=== PATIENT | male | born 1980 | race African-American/Black ===

== ENCOUNTER 2021-06-22 13:16 | Emergency (ER) | payer OTHER ==
[~2021-06-22] VITALS: Ht 185.4 cm; Wt 88.5 kg
[2021-06-22 13:30] VITALS: BP 163/82
[2021-06-22] MEDS ORDERED: SUPRAX400 M1 PO (13:47)
[2021-06-22] MEDS ORDERED: DOXYCYCLINE 10100 MG PO (13:47)
== END 2021-06-22 14:04 | disposition home or self-care (01) ==
LOC: M.ERS 13:16
DX: J06.9 Acute upper respiratory infection, unspecified (principal); Z20.2 Contact with and (suspected) exposure to infections with a predominantly sexual mode of transmission